=== PATIENT | female | born 1935 | race Caucasian/White ===

== ENCOUNTER 2019-07-27 15:22 | Inpatient (IN) | payer OTHER ==
--- NOTE | 2019-07-27 15:50 | NUR ---
MS RN RECEIVED A NEW ADMISSION FROM ANOTHER HOSPITAL,84 YEAR OLD FEMALE, CAME IN W/ DX OF ANXIETY DISORDER,MANIC EPISODE,AWAKE,ALERT,ORIENTED X3, ANXIOUS AT THIS TIME, W/ EPISODE OF AGITATION AND BODY SHAKING AT TIMES, MARIANO PAIN, NO SOB NOTED, AMBULATORY W/ MINIMAL ASSISTANCE, UNDER DR. FOSTER AND DR. ALVARADO, ALL NEEDS ATTENDED.
[2019-07-27] MEDS ORDERED: MAG HYDROX/AL HYDROX/SIMETH 30 ML UDC PO PRN (16:00)
[2019-07-27] MEDS ORDERED: BLOOD SUGAR DIAGNOSTIC 1 EACH STRIP IN ONE (16:00)
[2019-07-27] MEDS ORDERED: MAGNESIUM HYDROXIDE 30 ML UDC PO PRN (16:00)
[2019-07-27] MEDS ORDERED: ACETAMINOPHEN 325 MG TABLET PO PRN (16:00)
[2019-07-27] MEDS ORDERED: MELA5TAB PO (16:02)
[2019-07-27] MEDS ORDERED: AMLO5TAB4 PO (16:02)
[2019-07-27] MEDS ORDERED: METO25TA6 PO (16:02)
[2019-07-27] MEDS ORDERED: FAMO-131 PO (16:02)
[2019-07-27] MEDS ORDERED: BENA40TA67 PO (16:02)
[2019-07-27] MEDS ORDERED: CITA10TA9 PO (16:02)
[2019-07-27] MEDS ORDERED: ASPI-605 PO (16:02)
[2019-07-27] MEDS ORDERED: ALPR0.255 PO (16:02)
[2019-07-27] MEDS ORDERED: ATOR80TA PO (16:02)
[2019-07-27 16:18] VITALS: BP 138/86
[2019-07-27] MEDS: LORAZEPAM 0.5 MG TABLET PO PRN (17:40)
--- NOTE | 2019-07-27 18:30 | NUR ---
MS RN PATIENT FOUND IN THE DINING ROOM AT THIS TIME,NO DISTRESS NOTED.
[2019-07-27 20:18] VITALS: BP 152/79
[2019-07-27] MEDS: ATORVASTATIN 40 MG TABLET PO SCH (21:13)
[2019-07-27] MEDS ORDERED: Medication Not On Formulary EA (Melatonin 5 MG) PO SCH (22:00)
[2019-07-28 07:40] LABS: ALBUMIN 3.1 g/dL (3.4-5.0); CALCIUM, SERUM 9.2 mg/dL (8.5-10.1); CREATININE 0.7 mg/dL (0.6-1.3); POTASSIUM 4.3 mmol/L (3.5-5.1); TOTAL PROTEIN, SERUM 6.9 g/dL (6.4-8.2)
[2019-07-28 07:46] LABS: THYROID STIMULATING HORMONE 0.939 uIU/mL (0.358-3.74)
[2019-07-28 08:00] VITALS: BP_SYST 151; BP_DIAS 59; BP_DIAS 69
[2019-07-28] MEDS: BENAZEPRIL HCL 10 MG TABLET PO SCH (09:10)
[2019-07-28] MEDS: AMLODIPINE BESYLATE 5 MG TABLET PO SCH (09:11)
[2019-07-28] MEDS: METOPROLOL TARTRATE 25 MG TABLET PO SCH ×2 (09:11→17:06)
[2019-07-28] MEDS: ASPIRIN EC 81 MG TABLET.DR PO SCH (09:11)
--- NOTE | 2019-07-28 09:15 | NUR ---
Family Contact: KERLINE called the pts son, Eriberto ([phone]), and discussed the pts treatment plan with him. He stated that he currently lives with the pt. He stated that he moved into her home after she had a stroke two months ago because she began to decline. Pts son stated that she can return to her home once she is stable and that he will be there to support her.
--- NOTE | 2019-07-28 10:05 | NUR ---
Family Contact: Pts daughter in law, Angelina ([phone]), called the SW and provided her with the pts aftercare provider information because the pts son was unable to do so. She stated that she also has information on the pt if we ever need to consult her. SW stated that she will remain updated on the pts case.
--- NOTE | 2019-07-28 11:23 | NUR ---
Initial Discharge Plan: Pt currently resides in her home located at [address] [place] [address]; ([phone]) with her son, Eriberto ([phone]). Per pt, she would like to return to her home. SW will work with the pt and the MD regarding appropriate discharge planning. SW will form a safe and proper discharge.
[2019-07-28] MEDS: GABAPENTIN 100 MG CAPSULE PO SCH ×2 (13:40→17:06)
--- NOTE | 2019-07-28 13:53 | NUR ---
UR Note: KERLINE faxed a clinical to [facility] with attn to Juan to the fax number: [phone].
--- NOTE | 2019-07-28 15:40 | NUR ---
Group Note: SW encouraged the pt to participate in group therapy but the pt stated that she wanted to be left alone and "I want to sleep." Pt appeared to be highly anxious and guarded. KERLINE attempted to conduct an individual session with the pt with a azeri speaking COAL LOADER present but the pt refused to speak to her. Pt is deemed inappropriate for group and individual therapy at this time.
[2019-07-28 16:00] VITALS: BP 117/64
[2019-07-28 20:04] VITALS: BP 121/68
[2019-07-28] MEDS: ATORVASTATIN 40 MG TABLET PO SCH (22:03)
[2019-07-28] MEDS: TEMAZEPAM 7.5 MG CAPSULE PO PRN (22:04)
[2019-07-29 08:00] VITALS: BP 135/70
[2019-07-29] MEDS: METOPROLOL TARTRATE 25 MG TABLET PO SCH ×2 (08:40→16:31)
[2019-07-29] MEDS: BENAZEPRIL HCL 10 MG TABLET PO SCH (08:40)
[2019-07-29] MEDS: ASPIRIN EC 81 MG TABLET.DR PO SCH (08:40)
[2019-07-29] MEDS: AMLODIPINE BESYLATE 5 MG TABLET PO SCH (08:40)
[2019-07-29] MEDS: CITALOPRAM HYDROBROMIDE 20 MG TABLET PO SCH (08:40)
[2019-07-29] MEDS: GABAPENTIN 100 MG CAPSULE PO SCH ×3 (08:41→16:31)
[2019-07-29] MEDS ORDERED: DEXTROSE 50%-WATER 50 ML DISP.SYRIN IV PRN (10:00)
[2019-07-29] MEDS: LORAZEPAM 0.5 MG TABLET PO PRN (10:35)
--- NOTE | 2019-07-29 10:38 | NUR ---
GPS RN NOTE: ANXIETY PATIENT IS VERY ANXIOUS AEB TREMORS AND RESTLESSNESS. PATIENT HAS RESTLESS LEGS WELL. ATIVAN OFFERED AND ADMINISTERED ORDERED. WILL CONTINUE TO MONITOR Q15
[2019-07-29] MEDS: BLOOD SUGAR DIAGNOSTIC 1 EACH STRIP IN SCH ×3 (11:35→22:00)
--- NOTE | 2019-07-29 15:02 | NUR ---
Group Note: SW encouraged the pt to participate in group therapy but the pt stated that she wanted to be left alone and "I do not feel good." Pt appeared to be highly anxious and guarded. KERLINE attempted to conduct an individual session with the pt with a gabonese speaking CORE DRILLER HELPER present but the pt refused to speak to her. Pt is deemed inappropriate for group and individual therapy at this time.
[2019-07-29 16:04] VITALS: BP 127/73
[2019-07-29 16:09] VITALS: BP 127/73
--- NOTE | 2019-07-29 16:36 | NUR ---
GPS RN Note: with encouragement patient took 1700 medications but refused accucheck saying she does not have and never had diabetes. Despite education patient refused
--- NOTE | 2019-07-29 16:46 | NUR ---
gps rn note: constipation MOM administered for report of no BM for 4 days
[2019-07-29 20:00] VITALS: BP 119/77
[2019-07-29] MEDS: ATORVASTATIN 40 MG TABLET PO SCH (21:22)
--- NOTE | 2019-07-29 22:13 | NUR ---
REFUSED ACCU CHECK PATIENT REFUSED ACCU CHECK AT 2200, STATED," NO MAS BLOOD SUGAR, & KEPT WAVING HER HAND FOR "NO". OFFERED X 3 BUT PT. GOT ANXIOUS & RESTLESS & CONTINUED TO REFUSE ACCU CHECK. WILL CONTINUE TO MONITOR CLOSELY FOR SAFETY & BEHAVIOR.
[2019-07-30] MEDS: BLOOD SUGAR DIAGNOSTIC 1 EACH STRIP IN SCH ×4 (07:35→21:24)
[2019-07-30 08:00] VITALS: BP 128/79
[2019-07-30] MEDS: GABAPENTIN 100 MG CAPSULE PO SCH ×3 (08:26→16:27)
[2019-07-30] MEDS: CITALOPRAM HYDROBROMIDE 20 MG TABLET PO SCH (08:27)
[2019-07-30] MEDS: ASPIRIN EC 81 MG TABLET.DR PO SCH (08:27)
[2019-07-30] MEDS: BENAZEPRIL HCL 10 MG TABLET PO SCH (08:28)
[2019-07-30] MEDS: AMLODIPINE BESYLATE 5 MG TABLET PO SCH (08:28)
[2019-07-30] MEDS: METOPROLOL TARTRATE 25 MG TABLET PO SCH ×2 (08:29→16:28)
--- NOTE | 2019-07-30 12:06 | NUR ---
Pt. refused for accu check, explained on the importance and pt. is still refusing.
[2019-07-30 16:00] VITALS: BP 135/73
[2019-07-30] MEDS: LORAZEPAM 0.5 MG TABLET PO PRN (16:32)
[2019-07-30 20:00] VITALS: BP 144/64
[2019-07-30] MEDS: ATORVASTATIN 40 MG TABLET PO SCH (21:20)
[2019-07-30] MEDS: TEMAZEPAM 7.5 MG CAPSULE PO PRN (21:27)
--- NOTE | 2019-07-30 21:27 | NUR ---
GPS-RN NOTE: INSOMNIA PATIENT C/O INABILITY TO SLEEP. ADMINISTERED RESTORIL 7.5MG PO ORDERED. WILL CONTINUE TO MONITOR.
[2019-07-31] MEDS: BLOOD SUGAR DIAGNOSTIC 1 EACH STRIP IN SCH ×4 (07:31→21:08)
[2019-07-31 08:00] VITALS: BP 136/65
[2019-07-31] MEDS: GABAPENTIN 100 MG CAPSULE PO SCH ×3 (08:41→17:47)
[2019-07-31] MEDS: BENAZEPRIL HCL 10 MG TABLET PO SCH (08:42)
[2019-07-31] MEDS: AMLODIPINE BESYLATE 5 MG TABLET PO SCH (08:42)
[2019-07-31] MEDS: CITALOPRAM HYDROBROMIDE 20 MG TABLET PO SCH (08:42)
[2019-07-31] MEDS: ASPIRIN EC 81 MG TABLET.DR PO SCH (08:42)
[2019-07-31] MEDS: METOPROLOL TARTRATE 25 MG TABLET PO SCH ×2 (08:43→17:47)
[2019-07-31] MEDS: LORAZEPAM 0.5 MG TABLET PO PRN (10:18)
[2019-07-31] MEDS: FAMOTIDINE (20 MG) 20 MG TABLET PO PRN (10:18)
--- NOTE | 2019-07-31 10:18 | NUR ---
rn notes Administered Ativan for anxiety 0.5 mg po prn, and Pepcid for stomachache and nausea per patient request, v/s taken bp-125/62, p-68. continued monitoring.
[2019-07-31 16:00] VITALS: BP 120/73
[2019-07-31 20:10] VITALS: BP 114/68
[2019-07-31] MEDS: ATORVASTATIN 40 MG TABLET PO SCH (21:05)
[2019-07-31] MEDS: INSULIN REGULAR, HUMAN 100 UNIT/ML 3 ML VIAL SQ PRN (21:41)
--- NOTE | 2019-07-31 21:41 | NUR ---
GPS RN NOTES: PT BLOOD SUGAR 94. ACCORDING TO ORDERS, NO INSULIN COVERAGE DUE TO SLIDING SCALE. CONTINUE TO MONITOR.
--- NOTE | 2019-07-31 22:45 | NUR ---
GPS RN NOTES: REFUSED SKIN ASSESSMENT/PICTURE PT REFUSED WEEKLY SKIN ASSESSMENT AND PICTURE. PT STATED, "WHY SHOULD I? ME FINE." EXPLAIN RISKS AND BENEFITS. PT STILL REFUSED. CONTINUE TO MONITOR
[2019-08-01] MEDS: BLOOD SUGAR DIAGNOSTIC 1 EACH STRIP IN SCH ×4 (07:38→21:35)
[2019-08-01] MEDS: INSULIN REGULAR, HUMAN 100 UNIT/ML 3 ML VIAL SQ PRN (07:45)
[2019-08-01 08:00] VITALS: BP 144/52
[2019-08-01] MEDS: GABAPENTIN 100 MG CAPSULE PO SCH ×3 (08:14→17:15)
[2019-08-01] MEDS: METOPROLOL TARTRATE 25 MG TABLET PO SCH ×2 (08:14→17:15)
[2019-08-01] MEDS: ASPIRIN EC 81 MG TABLET.DR PO SCH (08:14)
[2019-08-01] MEDS: BENAZEPRIL HCL 10 MG TABLET PO SCH (08:15)
[2019-08-01] MEDS: AMLODIPINE BESYLATE 5 MG TABLET PO SCH (08:16)
[2019-08-01] MEDS: CITALOPRAM HYDROBROMIDE 20 MG TABLET PO SCH (08:18)
[2019-08-01] MEDS: LORAZEPAM 0.5 MG TABLET PO PRN (08:22)
--- NOTE | 2019-08-01 08:23 | NUR ---
RN NOTE: PT NOTED TO HAVE INCREASED AGITATION AND IRRITABILITY. SHAKING AND STARTLED WHEN PEOPLE ENTER THE ROOM. MEDICATED WITH ATIVAN 0.5MG PO PRN.
--- NOTE | 2019-08-01 09:12 | NUR ---
UR Note: KERLINE faxed a clinical to [facility] with attn to Juan to the fax number: [phone].
--- NOTE | 2019-08-01 15:45 | NUR ---
Group Note: SW encouraged the pt to participate in group therapy but the pt stated that because I do not speak Arabic and because she does not speak much Faroese that she wanted to remain in her bed. Pt stated that she is still not feeling that good and stated that she wanted to return to her home with her son.
[2019-08-01 16:00] VITALS: BP 131/78
[2019-08-01 20:06] VITALS: BP 143/82
[2019-08-01] MEDS: ATORVASTATIN 40 MG TABLET PO SCH (21:19)
[2019-08-01] MEDS: TEMAZEPAM 7.5 MG CAPSULE PO PRN (22:13)
--- NOTE | 2019-08-01 22:13 | NUR ---
GPS-RN NOTE: INSOMNIA PATIENT C/O INABILITY TO SLEEP. ADMINISTERED RESTORIL 7.5MG PO ORDERED. WILL CONTINUE TO MONITOR FOR SAFETY.
[2019-08-02] MEDS: BLOOD SUGAR DIAGNOSTIC 1 EACH STRIP IN SCH ×4 (07:25→21:42)
[2019-08-02 08:00] VITALS: BP 168/79
[2019-08-02] MEDS: ASPIRIN EC 81 MG TABLET.DR PO SCH (08:17)
[2019-08-02] MEDS: BENAZEPRIL HCL 10 MG TABLET PO SCH (08:17)
[2019-08-02] MEDS: METOPROLOL TARTRATE 25 MG TABLET PO SCH ×2 (08:17→17:03)
[2019-08-02] MEDS: AMLODIPINE BESYLATE 5 MG TABLET PO SCH (08:18)
[2019-08-02] MEDS: CITALOPRAM HYDROBROMIDE 20 MG TABLET PO SCH (08:18)
[2019-08-02] MEDS: GABAPENTIN 100 MG CAPSULE PO SCH ×3 (08:18→17:02)
--- NOTE | 2019-08-02 08:28 | NUR ---
UR NOTE: KERLINE faxed a clinical to [facility] with attn to Juan to the fax number: [phone].
--- NOTE | 2019-08-02 10:47 | NUR ---
FAMILCY CONTACT: KERLINE received a call from Pts daughter in law, Angelina ([phone]), requesting an update on pts status. KERLINE provided update and also informed her that pt is scheduled for a PROBABLE CAUSE HEARING on this present day. Daughter in law stated that pt is able to return home and that pt has a scheduled Psychiatrist appointment scheduled with [facility] Address: [address] [place] [address] [address], [place] [address] on August 11. She also stated that pt will also follow up with a neurologist. KERLINE informed her that pt has an anticipated discharge date for Thursday08/03/19 or 08/04/19. KERLINE stated she would provide daughter in law with an update as soon as hearing is over.
[2019-08-02] MEDS ORDERED: CLONIDINE HCL 0.1 MG TABLET PO PRN (11:00)
--- NOTE | 2019-08-02 13:30 | NUR ---
FAMILY CONTACT: SW received a call from Pts daughter in law, Angelina ([phone]), requesting hearing update. SW informed her that pts hearing was upheld and that she will be discharged by MD when he feels pt is stable for discharge. Daughter in law requested a call from MD to discuss medication and treatment.
--- NOTE | 2019-08-02 14:40 | NUR ---
Individual Counseling: This SW met with the patient at bedside. The patient presented laying in her bed with her eyes open. The patient appears unkempt, did not make appropriate eye contact, with flat affect and impoverished speech. The patient, stated she only speaks Romanian. This SW engaged patient in conversation regarding her current situation. The patient stated "too anxious". SW explored triggers. The patient stated that she has difficulty sleeping. Patient stated she slept a few hours last night with medication. The patient stated, "right now I am anxious about my stay here". SW ensured patient that she is here to receive help. Patient will be invited to the next therapeutic milieu.
[2019-08-02 16:00] VITALS: BP 116/83
[2019-08-02] MEDS: LORAZEPAM 0.5 MG TABLET PO PRN (17:09)
--- NOTE | 2019-08-02 17:09 | NUR ---
RN NOTE: ANXIETY PT EXHIBITING INCREASED ANXIETY. HYPERVENTILATING AND SHAKING. MEDICATED WITH ATIVAN 0.5 MG PO PRN
--- NOTE | 2019-08-02 19:30 | NUR ---
GPS RN OPENING NOTE: RECEIVED PT RESTING IN BED. A & O X 2-3. NO ACUTE DISTRESS NOTED. ANXIOUS/FEARFUL. RESTLESS AT TIMES BUT PT IS ASYMPTOMATIC AT PRESENT TIME. PT DENIES SI AND IS ABLE TO CONTRACT FOR SAFETY AT PRESENT TIME. PT DENIES HI/AH/VH. AMBULATORY WITH WALKER /STEADY. MED COMPLAINT. BED ALARM ON. BED IN LOW LOCKED POSITION. ENVIRONMENTAL SAFETY CHECKS DONE. PT IS COOPERATIVE WITH CARE. WILL CONT TO MONITOR Q 15 MINUTES FOR SAFETY AND BEHAVIOR PER GPS PROTOCOL.
[2019-08-02 20:00] VITALS: BP 110/63
[2019-08-02 20:05] VITALS: BP 110/63
[2019-08-02] MEDS: ATORVASTATIN 40 MG TABLET PO SCH (21:26)
[2019-08-02] MEDS: INSULIN REGULAR, HUMAN 100 UNIT/ML 3 ML VIAL SQ PRN (21:59)
[2019-08-03] MEDS: BLOOD SUGAR DIAGNOSTIC 1 EACH STRIP IN SCH ×4 (07:30→22:00)
[2019-08-03 08:00] VITALS: BP 114/59
[2019-08-03] MEDS: BENAZEPRIL HCL 10 MG TABLET PO SCH (09:00)
[2019-08-03] MEDS: AMLODIPINE BESYLATE 5 MG TABLET PO SCH (09:00)
[2019-08-03] MEDS: METOPROLOL TARTRATE 25 MG TABLET PO SCH ×2 (09:00→18:14)
[2019-08-03] MEDS: ASPIRIN EC 81 MG TABLET.DR PO SCH (09:04)
[2019-08-03] MEDS: GABAPENTIN 100 MG CAPSULE PO SCH ×3 (09:09→17:00)
[2019-08-03] MEDS: CITALOPRAM HYDROBROMIDE 20 MG TABLET PO SCH (09:09)
--- NOTE | 2019-08-03 11:04 | NUR ---
UR NOTE: SW received a call from Dora, after director of career resources at [facility] ([phone]) providing SW with aftercare appointments for pt. KERLINE informed her that pt has an appointment scheduled with Neurologist Dr. David Quintana [facility] Address: [address] [place] [phone] ) on August 08 and an appointment with psychiatrist Dr. Roosevelt Yin [address] [place] [phone] ) on August 11. Dora stated that she would schedule a therapy appointment for pt and call back with information.
--- NOTE | 2019-08-03 12:00 | NUR ---
FAMILY CONTACT: SW received a call from Pts daughter in law, Angelina ([phone]), requesting discharge information. SW informed her that pt will be discharged on Thursday08/05/19. Daughter in law agreed with discharge plan.
[2019-08-03] MEDS: INSULIN REGULAR, HUMAN 100 UNIT/ML 3 ML VIAL SQ PRN (13:02)
--- NOTE | 2019-08-03 14:52 | NUR ---
INDIVIDUAL INTERVENTION: KERLINE met with pt at bedside. The patient presented laying in her bed with her eyes open. The patient appears unkempt, did not make appropriate eye contact, with flat affect and impoverished speech. Pt stated that she was very nervous and could not talk about what she was feeling. Pt kept repeating in Gibraltarian, "I don't know, I don't know what to do." SW informed pt that she will be discharging on Thursday back home and pt then stated that she did not know if that was a good idea. When KERLINE asked what she meant pt began speaking nonsensically.
--- NOTE | 2019-08-03 19:20 | NUR ---
GPS RN OPENING NOTE: RECEIVED PT RESTING IN BED. A & O X 2-3. SOLOMON ISLANDER SPEAKING. NO ACUTE DISTRESS NOTED. ANXIOUS/FEARFUL. RESTLESS AT TIMES BUT PT IS ASYMPTOMATIC AT PRESENT TIME. PER AM RN REPORT, PT. REFUSED ACCU CHECK. PT DENIES SI AND IS ABLE TO CONTRACT FOR SAFETY AT PRESENT TIME. PT DENIES HI/AH/VH. AMBULATORY WITH WALKER /STEADY. MED COMPLAINT BUT NON COMPLAINT AT TIMES. BED ALARM ON. BED IN LOW LOCKED POSITION. ENVIRONMENTAL SAFETY CHECKS DONE. WILL CONT TO MONITOR Q 15 MINUTES FOR SAFETY AND BEHAVIOR PER GPS PROTOCOL.
[2019-08-03 20:00] VITALS: BP 144/69
[2019-08-03 20:33] VITALS: BP 144/69
[2019-08-03] MEDS: ATORVASTATIN 40 MG TABLET PO SCH (21:21)
[2019-08-03] MEDS: TEMAZEPAM 7.5 MG CAPSULE PO PRN (21:30)
--- NOTE | 2019-08-03 21:32 | NUR ---
GPS RN NOTE: INSOMNIA PATIENT STATED SHE IS UNABLE TO SLEEP & REQUESTED TO GET SLEEPING MEDICINE. PRN RESTORIL 7.5 MG 1 CAP PO GIVEN. WILL CONTINUE TO MONITOR FOR EFFECTIVENESS.
--- NOTE | 2019-08-03 22:04 | NUR ---
REFUSED ACCU CHECK PATIENT REFUSED ACCU CHECK TO BE DONE, GOT VERY ANXIOUS, PANICKING, THREW HERSELF BACKWARDS IN BED WHILE SITTING IN BED & KEPT SAYING," NO MORE, NO MORE." DAUGHTER IN LAW AURA WAS MADE AWARE ABOUT HER BEHAVIOR & EPISODES OF REFUSING ACCU CHECKS & INSULIN. THIS EVENING WHEN SHE CALLED TO GET UPDATES ABOUT THE PATIENT.
[2019-08-04] MEDS: BLOOD SUGAR DIAGNOSTIC 1 EACH STRIP IN SCH ×4 (07:30→22:02)
[2019-08-04 08:00] VITALS: BP 137/90
[2019-08-04] MEDS: ASPIRIN EC 81 MG TABLET.DR PO SCH (08:37)
[2019-08-04] MEDS: GABAPENTIN 100 MG CAPSULE PO SCH ×3 (08:37→16:20)
[2019-08-04] MEDS: FAMOTIDINE (20 MG) 20 MG TABLET PO PRN (08:37)
[2019-08-04] MEDS: LORAZEPAM 0.5 MG TABLET PO PRN (08:37)
[2019-08-04] MEDS: CITALOPRAM HYDROBROMIDE 20 MG TABLET PO SCH (08:37)
[2019-08-04] MEDS: AMLODIPINE BESYLATE 5 MG TABLET PO SCH (08:38)
[2019-08-04] MEDS: BENAZEPRIL HCL 10 MG TABLET PO SCH (08:38)
[2019-08-04] MEDS: METOPROLOL TARTRATE 25 MG TABLET PO SCH ×2 (08:39→16:21)
--- NOTE | 2019-08-04 09:27 | NUR ---
FAMILY CONTACT: SW received a call from Pts daughter in law, Angelina ([phone]), who stated she will be picking up between 12:00-1:00pm tomorrow Thursday08/05/19.
--- NOTE | 2019-08-04 11:35 | NUR ---
BS 217 BUT PT REFUSES INSULIN INSPITE OF EXPLAINING THE RISKS AND BENEFITS.
[2019-08-04] MEDS: INSULIN REGULAR, HUMAN 100 UNIT/ML 3 ML VIAL SQ PRN (12:17)
--- NOTE | 2019-08-04 12:18 | NUR ---
PT AGREED TO HAVE INSULIN 4 UNITS SQ GIVEN TO RT DELTOID POST LUNCH MEAL WITH BS OF 217
[2019-08-04 16:00] VITALS: BP 114/66
--- NOTE | 2019-08-04 16:25 | NUR ---
INDIVIDUAL INTERVENTION: pt is not appropriate for individual counseling at this time as pt is very anxious and fearful and does not engage in a meaningful conversation.
--- NOTE | 2019-08-04 18:14 | NUR ---
PT WALKS ALONG THE HALLWAY USING HER WALKER AND WAS PLEASANT AND COMPLIANT WITH ALL HER PO MEDS INCLUDING HER INSULIN. NO SCREAMING , NO TREMBLING, NO TEARFUL AND NO ANXIETY EPISODE AFTER BREAKFAST. PT DENIES ANY SI/HI/AVH. PT FINDS PLEASURE IN TELLING HER STORIES ABOUT HER GOOD [employer] ,WORKING WITH HER [employer] BOSSES AND CO WORKERS FOR 13 YRS IN [employer]. ACTIVE LISTENING PROVIDED. WILL CONTINUE TO MONITOR.
[2019-08-04 20:28] VITALS: BP 102/61
[2019-08-04] MEDS: ATORVASTATIN 40 MG TABLET PO SCH (22:12)
[2019-08-04] MEDS: TEMAZEPAM 7.5 MG CAPSULE PO PRN (22:12)
--- NOTE | 2019-08-04 22:16 | NUR ---
GPS RN NOTES PT BLOOD SUGAR AT 2200 WAS 107, NO INSULIN NEEDED PER ORDER.
--- NOTE | 2019-08-04 22:17 | NUR ---
GPS RN NOTE PT REQUESTED FOR SLEEP MEDICATION, RESTORIL 7.5MG 1 CAP GIVEN PO ORDERED. WILL CONTINUE TO MONITOR PT.
[2019-08-05] MEDS: BLOOD SUGAR DIAGNOSTIC 1 EACH STRIP IN SCH ×2 (07:30→11:50)
[2019-08-05 08:00] VITALS: BP 128/75
[2019-08-05] MEDS: FAMOTIDINE (20 MG) 20 MG TABLET PO PRN (09:13)
[2019-08-05] MEDS: ASPIRIN EC 81 MG TABLET.DR PO SCH (09:13)
[2019-08-05] MEDS: CITALOPRAM HYDROBROMIDE 20 MG TABLET PO SCH (09:13)
[2019-08-05] MEDS: BENAZEPRIL HCL 10 MG TABLET PO SCH ×2 (09:14→09:27)
[2019-08-05] MEDS: GABAPENTIN 100 MG CAPSULE PO SCH ×2 (09:14→12:16)
[2019-08-05] MEDS: AMLODIPINE BESYLATE 5 MG TABLET PO SCH ×2 (09:14→09:26)
[2019-08-05] MEDS: METOPROLOL TARTRATE 25 MG TABLET PO SCH ×2 (09:14→09:28)
[2019-08-05 09:28] VITALS: BP 128/75
--- NOTE | 2019-08-05 11:50 | NUR ---
Dr. Mireles gave an order to D/C hold and D/C home and to follow up psych and medical doctors. Chetan (VACUUM CLEANER ASSEMBLER) made aware of the discharge and wrote prescriptions and with an order of Home Health Services. Pt. without distress, denies suicidal and homicidal. Discharge papers ready and pt. signed, belongings ready and pictures taken for the skin.
--- NOTE | 2019-08-05 12:08 | NUR ---
Home Health Referral: KERLINE faxed a referral to [facility] to the fax number: [phone].
--- NOTE | 2019-08-05 12:08 | NUR ---
UR NOTE: KERLINE faxed a discharge clinical with a home health order to [facility] with attn to Juan to the fax number: [phone].
--- NOTE | 2019-08-05 14:25 | NUR ---
Pt. left the unit with belongings and wheeled by staffs to the lobby. Pt. was picked up by the daughter-in -law Angelina Mancera and the son Eriberto, was instructed on meds to continue at home and advised to make a follow up with psych and medical doctors and instructed that pt. with Home Health Services. Pt. left the unit without distress and on stable condition. V/S taken: BP 111/74, IL 63, RR 18, temp 97.2 and oxygen sat 97%.
--- NOTE | 2019-08-05 14:39 | NUR ---
Discharge Note: Pt was discharged via private vehicle between 12:00pm-1:00pm home [address] [place] [id number]. Pts daughter in law, Angelina ([phone]), picked the pt up. Upon discharge, the pt appeared to be in a euthymic mood and presented with an anxious affect. Pt appeared to be alert and oriented x4 (time, place, self and situation). Pt denied both suicidal and homicidal ideation as well as auditory and visual hallucinations. Pt appears to be ambulatory with a steady gait. Pt appears to be groomed and appropriately dressed. Pt will follow up with psychiatrist, Dr. Roosevelt Yin, located at [address] [place] [phone] ) and catering chef, Dr. David Tracy, Address: [address] [place] [phone] ). Pt also has a therapy appointment on August 11 at 8:30am with Chanelle Jamison via Telehealth and a Medication Management appointment on September 02 at 8:30am with Arnie Lopez via Telehealth.
--- NOTE | 2019-08-08 09:39 | NUR ---
FAMILY CONTACT: KERLINE received a call from Pts daughter in law, Angelina ([phone]), requesting KERLINE fax clinicals to psychiatrist, Dr. Roosevelt Yin, located at [address] [place] [phone] ) and manager strategic development, Dr. David Tracy, Address: [address] [place] [phone] ) . KERLINE faxed clinicals to both MD's.
== END 2019-08-05 14:25 | disposition home or self-care (01) | DRG 885 ==
LOC: GPS 15:22
PROVIDERS: ADMIT Psychiatry & Neurology Psychiatry; ATTEND Student in an Organized Health Care Education/Training Program
DX: F39 Unspecified mood [affective] disorder (principal); E44.1 Mild protein-calorie malnutrition; E87.1 Hypo-osmolality and hyponatremia; R45.851 Suicidal ideations; F23 Brief psychotic disorder; F41.9 Anxiety disorder, unspecified; E11.9 Type 2 diabetes mellitus without complications; E86.0 Dehydration; I10 Essential (primary) hypertension; Z86.73 Personal history of transient ischemic attack (TIA), and cerebral infarction without residual deficits; E88.09 Other disorders of plasma-protein metabolism, not elsewhere classified
CPT/HCPCS: 36415; 80053-TC; 80061-TC; 82962-TC; 84443-TC; 87081-TC; J1815